=== PATIENT | female | born 1955 ===

== ENCOUNTER 2017-11-05 05:35 | Inpatient (IN) | payer MEDICAID ==
[~2017-11-05] VITALS: Ht 157.5 cm; Wt 76.9 kg
[~2017-11-05 05:35] MED LIST: ASPI-496 PO; CALC1CAP8 PO; CELE200C PO; CETI10TA18 PO; CHOL20002 PO; CROM13SP5 NS; FLUT9.9S NS; LOSA25TA5 PO; MELO15TA24 PO; METH750T87 PO; METO10TA82 PO; OXYC500S PO; PANT40TA3 PO; RANI150T23 PO; SIMV10TA3 PO; TRAM50TA2 PO; TRAZ50TA18 PO
[2017-11-05] MEDS ORDERED: LACTATED RINGERS 1,000 ML IV SCH (06:08)
[2017-11-05 06:11] VITALS: BP 134/78
[2017-11-05] MEDS ORDERED: FENTANYL PF 250 MCG/5ML ONE (06:36)
[2017-11-05] MEDS ORDERED: MIDAZOLAM 1 MG/ML, 2ML ONE (06:36)
[2017-11-05] MEDS ORDERED: PROPOFOL 10 MG/ML, 20ML ONE (06:44)
[2017-11-05] MEDS ORDERED: ROCURONIUM 10MG/ML,5ML ONE (06:45)
[2017-11-05] MEDS ORDERED: SUCCINYLCHOLINE 20 MG/ML, 10ML ONE (06:46)
[2017-11-05] MEDS ORDERED: DEXAMETHASONE 4 MG/ML, 1ML ONE ×2 (06:46)
[2017-11-05] MEDS ORDERED: WATER-INJECTION,STERILE 10 ML IV ONE (06:47)
[2017-11-05] MEDS ORDERED: SCOPOLAMINE PATCH, 1.5MG PATCH.TD72 TD ONE ×2 (06:47→07:00)
[2017-11-05] MEDS ORDERED: CEFAZOLIN 1,000 MG ONE ×2 (06:47)
[2017-11-05] MEDS ORDERED: ACETAMINOPHEN 500 MG TABLET ONE (06:48)
[2017-11-05] MEDS ORDERED: OxyconTIN ER 20 MG TAB.ER ONE (06:48)
[2017-11-05] MEDS ORDERED: PROPOFOL 50 ML ONE ×3 (06:48→09:50)
[2017-11-05] MEDS ORDERED: ONDANSETRON ODT 8 MG ONE (06:48)
[2017-11-05] MEDS ORDERED: BACITRACIN 50,000 UNIT ONE (06:55)
[2017-11-05] MEDS ORDERED: BUPIVACAINE/PF-EPI 0.5% 1:200K ONE (06:55)
[2017-11-05] MEDS ORDERED: THROMBIN 5,000 UNIT VIAL TP ONE (06:55)
[2017-11-05] MEDS ORDERED: ACETAMINOPHEN 500 MG TABLET PO ONE (07:00)
[2017-11-05] MEDS ORDERED: OxyconTIN ER 20 MG TAB.ER PO ONE (07:00)
[2017-11-05] MEDS ORDERED: ONDANSETRON ODT 8 MG PO ONE (07:00)
[2017-11-05] MEDS ORDERED: PROMETHAZINE 12.5 MG SUPP PR PRN (07:30)
[2017-11-05] MEDS ORDERED: FENTANYL PF 100 MCG/2ML IV PRN (07:30)
[2017-11-05] MEDS ORDERED: PROMETHAZINE 25 MG/ML, 1ML IV PRN (07:30)
[2017-11-05] MEDS ORDERED: OXYcodone 5 MG/5 ML ORAL.SOL UDC PO PRN (07:30)
[2017-11-05] MEDS ORDERED: MEPERIDINE/PF 25MG/0.5ML IVPush PRN (07:30)
[2017-11-05] MEDS ORDERED: ONDANSETRON 2MG/ML, 2ML IVPush PRN (07:30)
[2017-11-05] MEDS ORDERED: hydrALAzine 20 MG/ML, 1ML IV PRN (07:30)
[2017-11-05] MEDS ORDERED: morphine SULFATE 10 MG/ML, 1ML IV PRN (07:30)
[2017-11-05] MEDS ORDERED: LABETALOL 5MG/ML, 20ML IV PRN (07:30)
[2017-11-05] MEDS ORDERED: HYDROmorphone 1 MG/ML, 1ML IV PRN (07:30)
[2017-11-05] MEDS ORDERED: PHENYLEPHRINE 10 MG/ML ONE (07:49)
[2017-11-05] MEDS ORDERED: FENTANYL PF 100 MCG/2ML ONE ×2 (09:31→11:13)
[2017-11-05] MEDS ORDERED: OXYcodone 5 MG/5 ML ORAL.SOL UDC ONE (11:13)
[2017-11-05] MEDS ORDERED: MORPHINE SULFATE 4 MG/ML, 1ML ONE (11:13)
[2017-11-05] MEDS: LABETALOL 5MG/ML, 20ML IV SCH ×2 (13:00→20:20)
[2017-11-05] MEDS ORDERED: HYDROmorphone 2 MG/ML, 1ML IM PRN (13:00)
[2017-11-05] MEDS ORDERED: DIPHENHYDRAMINE 50 MG/ML, 1ML IVPush PRN (13:00)
[2017-11-05] MEDS ORDERED: DIPHENHYDRAMINE 50 MG CAPSULE PO PRN (13:00)
[2017-11-05] MEDS ORDERED: BISACODYL 10 MG SUPP PR PRN (13:00)
[2017-11-05] MEDS ORDERED: HYDROmorphone 2MG TABLET PO PRN (13:00)
[2017-11-05] MEDS ORDERED: DIPHENHYDRAMINE 50 MG/ML, 1ML IM PRN (13:00)
[2017-11-05] MEDS ORDERED: CYCLOBENZAPRINE 10 MG TABLET PO PRN (13:00)
[2017-11-05] MEDS ORDERED: ONDANSETRON 2MG/ML, 2ML IV PRN (13:00)
[2017-11-05] MEDS ORDERED: HYDROcodone/APAP 5/325 TABLET PO PRN (13:00)
[2017-11-05] MEDS ORDERED: MAGNESIUM HYDROXIDE 8%, 30ML UDC PO PRN (13:00)
[2017-11-05] MEDS ORDERED: CELEBREX MC SCH (13:00)
[2017-11-05] MEDS ORDERED: METHOCARBAMOL 750 MG TABLET PO PRN (13:00)
[2017-11-05] MEDS: D5%-0.9% NACL+KCL 20MEQ 1,000 ML IV SCH ×2 (14:11→23:04)
[2017-11-05 14:12] VITALS: BP 122/76
[2017-11-05] MEDS: CEFAZOLIN PMX 1GM/50ML 50 ML IV SCH ×2 (14:12→22:05)
[2017-11-05] MEDS: OXYcodone/APAP 5/325MG TABLET PO PRN ×2 (16:28→20:12)
[2017-11-05 19:11] VITALS: BP 120/62
[2017-11-05] MEDS ORDERED: FAMOTIDINE 40 MG TABLET PO SCH (21:00)
[2017-11-05] MEDS ORDERED: SIMVASTATIN 10 MG TABLET PO SCH (21:00)
[2017-11-05] MEDS ORDERED: ZOLPIDEM 5MG TABLET PO PRN (21:00)
[2017-11-05 23:11] VITALS: BP 106/51
[2017-11-06] MEDS: LABETALOL 5MG/ML, 20ML IV SCH (01:49)
[2017-11-06 03:14] VITALS: BP 111/69
[2017-11-06 07:05] VITALS: BP 124/76
[2017-11-06] MEDS: PANTOPROZOLE 40MG TABLET PO SCH ×2 (07:30→07:44)
[2017-11-06] MEDS: TRAZODONE 50MG TABLET PO SCH ×2 (07:44→07:50)
[2017-11-06] MEDS: CETIRIZINE 10 MG TABLET PO SCH ×2 (07:45→07:51)
[2017-11-06] MEDS: OXYcodone/APAP 5/325MG TABLET PO PRN (07:47)
[2017-11-06] MEDS: D5%-0.9% NACL+KCL 20MEQ 1,000 ML IV SCH (09:00)
[2017-11-06] MEDS ORDERED: LOSARTAN 50MG TABLET PO SCH (09:00)
[2017-11-06] MEDS ORDERED: SENNA/DOCUSATE TABLET PO SCH (09:00)
[2017-11-06] MEDS ORDERED: CHOLECALCIFEROL 1,000 UNIT TABLET PO SCH (09:00)
[2017-11-06] MEDS ORDERED: ENOXAPARIN 40 MG/0.4 ML SQ SCH (11:30)
[2017-11-06 11:54] VITALS: BP 127/60
[2017-11-06] MEDS ORDERED: METH4TAB2 PO (12:01)
[2017-11-06] MEDS ORDERED: METH750T87 PO (12:02)
[2017-11-06] MEDS ORDERED: OXYC-302 PO (12:02)
== END 2017-11-06 12:20 | disposition home or self-care (01) | DRG 472 ==
LOC: ORIP 05:35 → 4NOR 12:36 → MERGE 15:00 → DCLOUNGE 11-06 12:04
PROVIDERS: ADMIT Neurological Surgery; ATTEND Neurological Surgery
PROC: 0RB30ZZ Excision of Cervical Vertebral Disc, Open Approach (ICD-10-PCS; 2017-11-05)
PROC: 4A11X4G Monitoring of Peripheral Nervous Electrical Activity, Intraoperative, External Approach (ICD-10-PCS; 2017-11-05)
PROC: 0RG20A0 Fusion of 2 or more Cervical Vertebral Joints with Interbody Fusion Device, Anterior Approach, Anterior Column, Open Approach (ICD-10-PCS; principal; 2017-11-05 07:30)
DX: M48.02 Spinal stenosis, cervical region (principal); M47.12 Other spondylosis with myelopathy, cervical region; M43.12 Spondylolisthesis, cervical region; M47.22 Other spondylosis with radiculopathy, cervical region
CPT/HCPCS: 36415; 72040; 86850; 86900; C1713; J0690; J1100; J2250; J2704; J3010; Q0162; C1776; J0330; J2270; J2370; J3480; J7120

== ENCOUNTER → 2018-05-17 | Outpatient (CLI) | payer MEDICAID ==
[~2018-05-17] MED LIST changes: -CHOL20002 PO; +CHOL200052 PO; -LOSA25TA5 PO; +LOSA25TA6 PO; +METH4TAB2 PO; +OXYC-302 PO; +TRAZ-136 PO; -TRAZ50TA18 PO
== END | disposition home or self-care (01) ==
LOC: RAD 10:54
PROVIDERS: ATTEND Nurse Practitioner
DX: J98.11 Atelectasis (principal); I25.10 Atherosclerotic heart disease of native coronary artery without angina pectoris; I70.0 Atherosclerosis of aorta; Q27.8 Other specified congenital malformations of peripheral vascular system; I77.819 Aortic ectasia, unspecified site; R91.1 Solitary pulmonary nodule; F17.200 Nicotine dependence, unspecified, uncomplicated
CPT/HCPCS: G0297

== ENCOUNTER → 2018-07-17 | Outpatient (CLI) | payer MEDICAID ==
[~2018-07-17] MED LIST changes: +LOSA25TA25 PO; -LOSA25TA6 PO; -TRAZ-136 PO; +TRAZ50TA66 PO
== END | disposition home or self-care (01) ==
LOC: CFH 13:55
PROVIDERS: ATTEND Nurse Practitioner
DX: Z12.31 Encounter for screening mammogram for malignant neoplasm of breast (principal)
CPT/HCPCS: 77067

== ENCOUNTER → 2021-03-23 | Outpatient (CLI) | payer MEDICARE, MEDICAID ==
[~2021-03-23] MED LIST changes: -OXYC-302 PO; +OXYC1TAB12 PO; +RANI-467 PO; -RANI150T23 PO; +SIMV10TA18 PO; -SIMV10TA3 PO
== END | disposition home or self-care (01) ==
LOC: CFH 14:12
PROVIDERS: ATTEND Nurse Practitioner
DX: Z12.31 Encounter for screening mammogram for malignant neoplasm of breast (principal)
CPT/HCPCS: 77063; 77067